=== PATIENT | male | born 1980 | race Hispanic/Latino ===

== ENCOUNTER 2023-09-12 19:31 | Emergency (ER) | payer OTHER ==
[2023-09-12] MEDS ORDERED: Ibuprofen 200 MG TAB ONE (21:46)
== END 2023-09-12 23:15 ==
LOC: ERS 19:31 → EEVIPCON 19:31 → ERS 23:15
DX: S40.212A Abrasion of left shoulder, initial encounter (principal); S20.311A Abrasion of right front wall of thorax, initial encounter; S50.311A Abrasion of right elbow, initial encounter; S09.90XA Unspecified injury of head, initial encounter; T14.8XXA Other injury of unspecified body region, initial encounter; Y04.0XXA Assault by unarmed brawl or fight, initial encounter
CPT/HCPCS: 70450; 71045